=== PATIENT | male | born 1955 | race African-American/Black ===

== ENCOUNTER 2016-08-04 21:47 | Emergency (ER) | payer SELFPAY ==
[~2016-08-04 21:47] MED LIST: PT DENIES HOME MEDS
[2016-08-11] MEDS ORDERED: ULTRAM50 PO (16:44)
[2016-08-11] MEDS ORDERED: DURICEF PO (16:45)
== END 2016-08-04 23:55 | disposition home or self-care (01) ==
LOC: ER 21:47
PROC: 0HQFXZZ Repair Right Hand Skin, External Approach (ICD-10-PCS; principal; 2016-08-04)
DX: S66.221A Laceration of extensor muscle, fascia and tendon of right thumb at wrist and hand level, initial encounter (principal); F17.200 Nicotine dependence, unspecified, uncomplicated; W26.0XXA Contact with knife, initial encounter
CPT/HCPCS: 90471; 90714; 99283

== ENCOUNTER 2016-08-12 12:45 | Day surgery (SDC) | payer SELFPAY ==
[~2016-08-12 12:45] MED LIST changes: +DURICEF PO; +ULTRAM50 PO
[2016-08-12 13:19] LABS: HEMATOCRIT 37.2 % (40.0-51.0); HEMOGLOBIN 13.5 g/dL (13.6-17.8)
== END 2016-08-12 23:59 | disposition home or self-care (01) ==
LOC: SDC 12:45
PROVIDERS: Orthopaedic Surgery Hand Surgery
DX: S61.511A Laceration without foreign body of right wrist, initial encounter (principal); Z53.9 Procedure and treatment not carried out, unspecified reason
CPT/HCPCS: 85014; 85018; 93005; J0690

== ENCOUNTER 2016-09-02 16:22 | Emergency (ER) | payer SELFPAY ==
[2016-09-02 17:21] LABS: BASOPHILS 0.7 %; BASOPHILS ABSOLUTE 0.02 10/3/uL (0.0-0.16); EOSINOPHILS 1.7 %; EOSINOPHILS ABSOLUTE 0.05 10/3/uL (0.0-0.53); HEMATOCRIT 35.4 % (40.0-51.0); HEMOGLOBIN 12.6 g/dL (13.6-17.8); IMMATURE GRANULOCYTES 0.3 %; IMMATURE GRANULOCYTES ABSOLUTE 0.01 10/3/uL (0.0-0.11); LYMPHOCYTES 59.1 %; LYMPHOCYTES ABSOLUTE 1.69 10/3/uL (0.67-4.30); MANUAL DIFF NO %; MEAN CORPUS HGB CONC 35.6 g/dL (32.0-36.0); MEAN CORPUSCULAR HEMOGLOB 34.7 pg (26.0-34.0); MEAN CORPUSCULAR VOLUME 97.5 fL (80-100); MEAN PLATELET VOLUME 7.9 fL (9.2-13.0); MONOCYTES 10.5 %; NEUTROPHILS 27.7 %; NEUTROPHILS ABSOLUTE 0.79 10/3/uL (2.02-8.40); PLATELET COUNT 151 10/3/uL (150-400); RBC DISTRIBUTION WIDTH 12.4 % (12.0-16.0); RED CELL COUNT 3.63 10/6/uL (4.7-6.1); WHITE BLOOD CELLS 2.9 10/3/uL (4.5-10.5)
[2016-09-02 17:26] LABS: PROTIME (NOT ORD) 13.3 SEC (12.0-14.5)
[2016-09-02 17:27] LABS: PARTIAL THROMBO TIME 27.8 SEC (22.5-37.2)
[2016-09-02 17:37] LABS: A/G RATIO 0.9 (0.7-1.9); ALBUMIN 3.8 G/DL (3.5-5.0); ALKALINE PHOSPHATASE 50 U/L (45-117); BUN (BLOOD UREA NITROGEN) 7 MG/DL (6-23); CALCIUM, SERUM 8.4 MG/DL (8.5-10.4); CHLORIDE, SERUM 92 MMOL/L (96-112); CO2 (CARBON DIOXIDE) 25 MMOL/L (24-34); CREATININE 0.69 MG/DL (0.70-1.30); GFR AFRICAN AMERICAN 120 ML/MIN (>=60); GFR NON AFRICAN AMERICAN 104 ML/MIN (>=60); GLOBULIN 4.3 G/DL (2.5-4.1); GLUCOSE, SERUM 75 MG/DL (60-99); POTASSIUM, SERUM 3.7 MMOL/L (3.5-5.3); SGOT(AST) 71 U/L (5-40); SGPT(ALT) 56 U/L (5-65); SODIUM, SERUM 131 MMOL/L (135-148); TOTAL BILIRUBIN 0.2 MG/DL (0-1.2); TOTAL PROTEIN 8.1 G/DL (6.0-8.5); TROPONIN I <0.02 NG/ML (<0.05)
[2016-09-02 17:46] LABS: BAND NEUTROPHILS 1 %; EOSINOPHILS 2 %; EOSINOPHILS ABSOLUTE (CALC) 0.06 10/3/uL (0.0-0.53); ER DIFF TAT 0 Hrs 31 Mins; LYMPHOCYTES 50 %; LYMPHOCYTES ABSOLUTE (CALC) 1.45 10/3/uL (0.67-4.30); MONOCYTES 9 %; MONOCYTES ABSOLUTE (CALC) 0.26 10/3/uL (0.21-1.20); NEUTROPHILS ABSOLUTE (CALC) 1.13 10/3/uL (2.02-8.40); SEGMENTED NEUTROPHIL (0) 38 %; TOTAL NUCLEATED CELLS 100
[2016-09-02 17:47] LABS: PLATELET ESTIMATE ADQ (ADEQUATE); RBC MORPHOLOGY NORM (NORMAL)
== END 2016-09-02 20:15 | disposition home or self-care (01) ==
LOC: ER 16:22
PROVIDERS: Emergency Medicine
DX: R06.6 Hiccough (principal); F17.200 Nicotine dependence, unspecified, uncomplicated; Z79.899 Other long term (current) drug therapy
CPT/HCPCS: 71010; 80053; 84484; 85025; 85610; 85730; 93005; 99284; A9270-GY